=== PATIENT | female | born 1955 | race Caucasian/White ===

== ENCOUNTER 2021-06-19 16:50 | Emergency (ER) | payer OTHER, MEDICAID ==
[~2021-06-19] VITALS: Ht 162.6 cm; Wt 95.3 kg
[2021-06-19] MEDS ORDERED: BENTYL 10 MG CA10 MG PO (16:59)
[2021-06-19] MEDS ORDERED: CLONIDINE HCL0.1 MG PO (16:59)
[2021-06-19] MEDS ORDERED: LAXATIVE5 M1 PO (16:59)
[2021-06-19] MEDS ORDERED: DULOXETINE HCL60 MG PO (16:59)
[2021-06-19] MEDS ORDERED: FEROSUL325 M1 PO (17:00)
[2021-06-19] MEDS ORDERED: FAMOTIDINE 40 M40 M1 PO (17:00)
[2021-06-19] MEDS ORDERED: FLUTICASONE-SA1 EAC5 INH (17:00)
[2021-06-19] MEDS ORDERED: FISH OIL + D31 EACH PO (17:00)
[2021-06-19] MEDS ORDERED: LORATIDINE 10 M10 M1 PO (17:01)
[2021-06-19] MEDS ORDERED: LEVO-T50 MCG PO (17:01)
[2021-06-19] MEDS ORDERED: CONSTULOSE10 GM/152 PO (17:01)
[2021-06-19] MEDS ORDERED: SINGULAIR 10 MG10 MG PO (17:01)
[2021-06-19] MEDS ORDERED: NEURONTIN100 MG PO (17:01)
[2021-06-19] MEDS ORDERED: FUROSEMIDE 20 M20 MG PO (17:01)
[2021-06-19] MEDS ORDERED: MIRALAX119 GM PO (17:02)
[2021-06-19] MEDS ORDERED: OMEPRAZOLE 20 M20 M1 PO (17:02)
[2021-06-19] MEDS ORDERED: NYSTATIN100000 UNI SW&SWALLOW (17:02)
[2021-06-19] MEDS ORDERED: MUCUS RELIEF600 M1 PO (17:02)
[2021-06-19] MEDS ORDERED: KLOR-CON 1010 MEQ PO (17:02)
[2021-06-19] MEDS ORDERED: ALBUTEROL0.63 MG/3 INH (17:03)
[2021-06-19] MEDS ORDERED: XIIDRA1 EACH OPHTHALMIC (17:03)
[2021-06-19] MEDS ORDERED: TIZANIDINE HCL 22 M1 PO ×2 (17:03→17:05)
[2021-06-19] MEDS ORDERED: SPIRIVA INH (17:03)
[2021-06-19] MEDS ORDERED: ALPRAZOLAM 0.0.25 MG PO (17:04)
[2021-06-19] MEDS ORDERED: HYDROCODON-ACE1 EAC7 PO (17:04)
[2021-06-19 18:40] VITALS: BP 105/74
== END 2021-06-19 18:41 | disposition home or self-care (01) ==
LOC: M.ERS 16:50
DX: M25.562 Pain in left knee (principal); M25.561 Pain in right knee; Z79.899 Other long term (current) drug therapy; Z88.5 Allergy status to narcotic agent; Z88.0 Allergy status to penicillin; Z88.2 Allergy status to sulfonamides; W01.0XXA Fall on same level from slipping, tripping and stumbling without subsequent striking against object, initial encounter; Y93.89 Activity, other specified; Y92.89 Other specified places as the place of occurrence of the external cause; Y99.8 Other external cause status